=== PATIENT | male | born 1980 | race Caucasian/White ===

== ENCOUNTER 2023-02-26 07:45 | Outpatient (CLI) | payer BC, SELFPAY | END 2023-02-26 07:46 | disposition home or self-care (01) | LOC: NFLDREF 11:38 | PROVIDERS: Visit Provider Internal Medicine Nephrology | DX: N18.5 Chronic kidney disease, stage 5 (principal); R53.83 Other fatigue; Z94.0 Kidney transplant status | CPT/HCPCS: 80061; 80069; 80197; 82043; 82306; 82310; 82570; 83520; 83970; 84165; 84450; 84460; 84550 ==

== ENCOUNTER 2023-03-06 07:01 | Outpatient (CLI) | payer BC, SELFPAY ==
--- NOTE | 2023-03-06 07:15 | CRLHL7_ITS ---
For Patients: As a result of the Century Cures Act, medical imaging exams and procedure reports are released immediately into your electronic medical record. You may view this report before your referring provider. If you have questions, please contact your health care provider. Indication: transplant kidney status. Technique: Grayscale, color Doppler and power Doppler evaluation of the transplanted kidney. Comparison: None Findings: Transplant kidney located within the right lower quadrant. The transplant kidney measures 12.9 cm in length. Normal color Doppler flow to the transplant kidney. Transplant renal cortex measures 1.4 cm, normal. Incidental simple cyst lower pole transplant kidney measuring 1.3 x 1.0 x 0.9 cm and 1.1 x 1.1 x 0.8 cm. Peak systolic velocity within the mid aorta 75 cm/seconds. Normal patency of the inferior vena cava. External iliac artery and vein on the right are normally patent with normal flow. Transplant right renal artery is patent with normal multiphasic flow. Normal resistive indices. Atrophic prairie band right kidney. Impression: Normal evaluation of the renal transplant with incidental simple cysts measuring up to 1.3 cm. Dictated by Milton Carcamo MD @ 03/06/2023 1:13:18 PM (Electronically Signed)
== END 2023-03-06 07:02 | disposition home or self-care (01) ==
PROVIDERS: PCP Internal Medicine; Visit Provider Internal Medicine Nephrology
DX: Z94.0 Kidney transplant status (principal); N28.1 Cyst of kidney, acquired; R07.9 Chest pain, unspecified
CPT/HCPCS: 76776

== ENCOUNTER 2023-05-15 09:50 | Outpatient (CLI) | payer BC, SELFPAY ==
--- OUTSIDE RECORDS SUMMARY | 2023-05-16 06:37 | XMS_ITS ---
Author Name Unknown Organization [facility] Address [address] [place] [address] Care Team Providers Care Printing Plate Clerk Name Role Phone Unavailable Unavailable Unavailable Surgery Details Not on file Complications Check Surgery Details section. Procedure Estimated Blood Loss Check Surgery Details section. Procedure Findings Check Surgery Details section. Procedure Specimens Taken Check Surgery Details section.
--- OUTSIDE RECORDS SUMMARY | 2023-05-16 06:37 | XMS_ITS | Clinical Summary ---
Author Name Unknown [facility] Address [address] [place] [address] Care Team Providers Care Hand Grinder Name Role Phone Nhung Quijano APRN, ANIMAL SITTER Primary Care Provider + Source Comments You are receiving this document as you are listed as the primary care provider,follow-up provider, or the patient has been referred to you for consultation.This is in compliance with the Medicare andMedicaid EHR Incentive Program,which states Providers who transition their patient to another setting of careor provider of care or refers their patient to another provider of care shouldprovide summary care record for each transition of care or referral. [facility] Allergies Active Allergy Reactions Criticality Noted Date Comments Amoxicillin Hives 08/05/2013 Erythromycin Anaphylaxis High 10/09/2007 Pt does not remember allergy or reaction Morphine 08/05/2013 PN: severe aggression Penicillins Anaphylaxis,Hives High 08/05/2013 Prednisone Hives High 01/10/2008 Prochlorperazine Anxiety 10/12/2007 Medications Medication Sig Dispensed Refills Start Date End Date Status mycophenolate (CELLCEPT) 500 MG tablet Take 1,000 mg by mouth 2 times daily. 08/05/2013 Active tacrolimus (PROGRAF) 1 MG capsule Take 2.5 mg by mouth two times a day. 08/05/2013 Active doxycycline (VIBRAMYCIN) 100 MG capsuleIndications :Acute maxillary sinusitis, recurrence not specified Take 1 Capsule by mouth two times a day. 14 Capsule 04/30/2019 Active Additional Information Patient not taking.Reported on 08/24/2020 buPROPion (WELLBUTRIN XL) 150 MG 24 hour release tablet Take 1 Tablet by mouth daily. 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 Now on daily antiviral d/t h/o kidney transplant, on immunosuppressive therapy History of kidney transplant 08/05/2013 Overview: Goes to [facility] [place] [address] [place] Resolved Problems Problem Noted Date Diagnosed Date Resolved Date Chronic diarrhea 03/09/2015 10/21/2016 Overview: Neg workup. Possibly Cellcept? Heartburn 03/09/2015 03/16/2018 Overview: Planning EGD. If needing chcf antacid will discuss w/ stoker installer FSGS (focal segmental glomerulosclerosis) 08/05/2013 08/05/2013 Asthma 04/18/2016 Overview: childhood Immunizations Name Administration Dates Next Due 9vHPV (Gardasil 9) 03/03/2019,03/16/2018 HepA-HepB ([place], 18+ yrs) 03/03/2019,03/16/20 18,10/20/2016 Influenza IIV4 (Quadrivalent ) 0.5mL (47182) 03/03/2019,03/16/2018 Influenza, Unspecified Formulation 12/27,01/28/2015,01/14/2011,2009,01/08/2009 PCV13 (Prevnar) 10/20/2016 PPSV23 (Pneumovax) 03/16/2018,03/04/2007, 007 Td (7+ yrs) 08/31/2006 Tdap 10/20/2016 Family History Medical History Relation Name Comments High Blood Pressure Mother High Cholesterol Mother Cancer Maternal Grandmother Relation Name Status Comments Mother Maternal Grandmother Social History Tobacco Use Types Packs/Day Years Used Date Smoking Tobacco: Former Cigarettes Electric Cigarette Smokeless Tobacco: Never Comments:previously used E-c igarette 07/17 Declinse to give deltails Alcohol Use Standard Drinks/Week Comments Yes 0 (1 standard drink = 0.6 oz pur e alcohol) seldom PHQ-2 Answer Date Recorded PHQ-2 Score 3 05/31/2020 Sex and Gender Information Value Date Recorded Sex Assigned at Not on file Gender Identity Not on file Sexual Orientation Not on file Last Filed Vital Signs Vital Sign Reading Time Taken Comments Blood Pressure 141/83 08/24/2020 7:31 PM CDT Pulse 99 08/24/2020 7:31 PM CDT Temperature 36.8 ??C (98.3 ??F) 08/24/2020 7:31 PM CD T Respiratory Rate 16 08/24/2020 7:31 PM CDT Oxygen Saturation 98% 08/24/2020 7:31 PM CDT Inhaled Oxygen Concentration - - Weight 88.9 kg (196 lb) 05/31/2020 10:11 AM FIRE PREVENTION CHIEF pt reports Height 170.2 cm (5' 7) 05/31/2020 10:11 AM FIRE PREVENTION CHIEF pt reports Body Mass Index 30.7 05/31/2020 10:11 AM FIRE PREVENTION CHIEF Plan of Treatment Health Maintenance Due Date Last Done Comments Diabetes: Eye Exam 1982 Diabetes: Foot Exam 1982 Zoster/Shingles (1 of 2) 2001 HPV Vaccine (3 - Risk 3-dose SCDM series) 07/03/2019 03/03/2019, 03/16/2018 Diabetes: Urine Microalbumin 02/15/2021 02/16/2020, 10/24/2019 Adult Preventive Visit 03/03/2021 03/03/2019 Diabetes: HGBA1C 06/05/2021 03/07/2021, , 02/16/2020, Additional history exists Diabetes: Creatinine 09/03/2021 09/03/2020, 02/16/2020, 10/24/2019, Additional history exists COVID-19 Vaccine ( season) 2022 04/09/2021, 11/06/2020, 07/17/2020, Additional history exists Influenza (#1) 2022 03/03/2019, 03/02, 12/28/2015, Additional history exists Diabetes: Lipid Panel 04/03/2024 04/03/2019 , 08/01/2017, 06/11/2015 DTaP/Tdap/Td (3 - Tdap) 10/20/2026 10/21/19 17, 03/04/2007, 08/31/2006 Pneumococcal (4 - PPSV23 or PCV20) 09/21/2047 03/16/2018, 10/20/2016, 03/04/2007, Additional history exists Hep C Screening (Preventive Services) Completed 10/26/2015 HIV Screening (Preventive Services) Completed 10/20/2016, 10/26/2015 HepA Completed 03/03/2019, 03/02, 10/20/2016, Additional history exists HepB Completed 03/03/2019, 03/02, 10/20/2016 Cholesterol Discontinued 04/03/2019, 05/2017, 06/11/2015 Hib Aged Out No longer eligi ble based on patient's age to complete this topic IPV (Polio) Aged Out No longer eligi ble based on patient's age to complete this topic [email or web address] Aged Out No longer eligi ble based on patient's age to complete this topic Procedures Procedure Name Priority Date/Time Associated Diagnosis Comments RENAL FUNCTION PANEL Routine 09/03/2020 11:03 AM CDT Transplanted kidney Type 2 diabetes mellitus with stage 3a chronic kidney disease, unspecified whether chcf insulin use (HRC) ALBUMIN/CREAT RATIO Routine 02/16/2020 1 2:17 PM FIRE PREVENTION CHIEF Kidney replaced by transplant Chronic kidney disease (CKD), stage III (moderate) HGB A1C Routine 02/16/2020 12:07 PM FIRE PREVENTION CHIEF Kidney replaced by transplant Chronic kidney disease (CKD), stage III (moderate) LIPID PANEL & DIRECT LDL (IF NEEDED) Routine 04/03/2019 2:09 PM FIRE PREVENTION CHIEF Chronic kidney disease, stage III (moderate) (HRC) Kidney replaced by transplant HIV-1 P24 AND HIV-1/HIV-2 ANTIBODIES Routine 10/20/2016 1:18 PM CDT Screen for STD (sexually transmitted disease) HEPATITIS PANEL ACUTE WITH REFLEX TO CONFIRMATION Routine 10/26/2015 3:54 PM CDT Screen for STD (sexually transmitted disease) from Last 3 Months or Most Recently Relevant to Health Maintenance Results * (ABNORMAL) Renal Function Panel (09/03/2020 11:03 AM CDT) Pathologist [facility] Sodium 137 136 - 145 mmol/L 09/03/2020 4:42 PM CDT [facility] Potassium 4.6 3.5 - 5.1 mmol/L 09/03/2020 4:42 PM CDT [facility] Chloride 105 98 - 109 mmol/L 09/03/2020 4:42 PM CDT [facility] CO2 21 20 - 29 mmol/L 09/03/2020 4:42 PM CDT [facility] Anion Gap 11 7 - 16 mmol/L 09/03/2020 4:42 PM CDT [facility] Calcium 9.8 8.4 - 10.4 mg/dL 09/03/2020 4:42 PM CDT [facility] BUN 22 7 - 26 mg/dL 09/03/2020 4:42 PM CDT [facility] Creatinine 1.93(H) 0.73 - 1.18 mg/dL 09/03/2020 4:42 PM CDT [facility] GFR, Estimated 43(L) >60 mL/min/1.7 3m2 09/03/2020 4:42 PM CDT [facility] Albumin 4.1 3.5 - 5.0 g/dL 09/03/2020 4:42 PM CDT [facility] Phosphorus 3.1 2.3 - 4.7 mg/dL 09/03/2020 4:42 PM CDT [facility] Glucose 91 70 - 100 mg/dL 09/03/2020 4:42 PM CDT [facility] Comment:The given reference range is for the fasting state. Non-fasting reference range for glucose is 70 - 180 mg/dL. Hours Fasting 12 09/03/2020 4:42 PM CDT [facility] Blood Venipuncture / Unknown 09/03/2020 11:03 AM CDT 09/03/2020 11:03 AM CDT Bryson Lewis MD LAB_1 Performing Organization Address [facility] Co de Phone Number [facility] [address] [place], [place] [id number] [place] [address] LABORATORY [address] [place] [address] [phone] * Microalb/Creat Ratio (02/16/2020 12:17 PM FIRE PREVENTION CHIEF) Albumin, Urine, Random 9.3 mg/L 02/16/2020 6:18 PM FIRE PREVENTION CHIEF [facility] Creatinine, Urine, Random 47 >20 mg/dL 02/16/2020 6:18 PM FIRE PREVENTION CHIEF [facility] Albumin/Creati nine Ratio, Urine, Random 20 <30 mg/g 02/16/2020 6:18 PM FIRE PREVENTION CHIEF [facility] Urine Non-blood Collection / Unknown 02/16/2020 12:17 PM FIRE PREVENTION CHIEF 02/16/2020 12:17 PM FIRE PREVENTION CHIEF Bryson Lewis MD LAB_1 Performing Organization Address [facility] Co de Phone Number [facility] [address] [place], [place] [phone] [place] [address] * Hgb A1C (02/16/2020 12:07 PM FIRE PREVENTION CHIEF) Hemoglobin A1C 5.1 <=5.6 % 02/17/2020 9:22 [address] [facility] Blood Venipuncture / Unknown 02/16/2020 12:07 PM FIRE PREVENTION CHIEF 02/16/2020 12:07 PM FIRE PREVENTION CHIEF Bryson Lewis MD LAB_1 Performing Organization Address [facility]/ZIP Co de Phone Number [facility] [address] [address] [phone] * (ABNORMAL) Lipid Panel (reflex to Direct LDL if indicated) (04/03/2019 2:09 PM FIRE PREVENTION CHIEF) Cholesterol 197 0 - 199 mg/dL 04/03/2019 7:24 PM FIRE PREVENTION CHIEF [facility] Triglyceride 176(H) <=149 mg/dL 04/03/2019 7:24 PM FIRE PREVENTION CHIEF [facility] HDL Cholesterol 32(L) >=40 mg/dL 0 7:24 PM FIRE PREVENTION CHIEF [facility] LDL, Calculated 130(H) <130 mg/dL 0 7:24 PM FIRE PREVENTION CHIEF [facility] Non HDL Chol, Calculated 165 mg/dL 04/03/2019 7:24 PM FIRE PREVENTION CHIEF [facility] Cholesterol/HDL Ratio 6.2 04/03/2019 7:24 PM FIRE PREVENTION CHIEF [facility] Hours Fasting 12 04/03/2019 7:24 PM FIRE PREVENTION CHIEF [facility] Blood Venipuncture / Unknown 04/03/2019 2:09 PM FIRE PREVENTION CHIEF 04/03/2019 2:09 PM FIRE PREVENTION CHIEF Bryson Lewis MD LAB_1 Performing Organization Address City/[facility]/ZIP Co de Phone Number [facility] [address] [place] [address], [facility] [address] [place] [address], [facility] [phone] * HIV-1 p24 AND HIV-1/HIV-2 ANTIBODIES (10/20/2016 1:18 PM CDT) [facility] HIV-1 p24 Ag and HIV-1/HIV-2 Ab Nonreactive Nonreactive [facility] 10/20/2016 1:18 PM CDT 10/20/2016 2:56 PM CDT Narrative PN SOFT - 10/20/2016 3:44 PM CDT Performed at [facility], [address] [place] [address] CLIA number [id number] Nhung Quijano APRN, CNP LAB_1 Performing Organization Address [facility] Co de Phone Number [address] [address] * HEPATITIS PANEL ACUTE WITH REFLEX TO CONFRIMATION (10/26/2015 3:54 PM CDT) Hepatitis A Virus AB IgM Nonreactive Non Reactive HP CONVERSION Hepatitis B Core IgM Antibody Nonreactive Nonreactive HP CONVERSION Hep B Surf Ag Nonreactive Negative HP CONVERSION Hepatitis C Antibody Nonreactive Non-Reactive HP CONVERSION 10/26/2015 3:54 PM CDT 10/26/2015 7:29 PM CDT Narrative HP CONVERSION - 10/26/2015 8:50 PM CDT Performed at [address] [address] CLIA number [id number] Nhung Quijano APRN, JENNIFER LAB_1 HP CONVERSION from Last 3 Months or Most Recently Relevant to Health Maintenance Advance Directives Latest Code Status on File Code Status Date Activated Date Inactivated Comments Full Code 10/13/2015 9:08 AM 10/13/2015 12:36 PM Care Teams Hand Grinder Relationship Specialty Start Date End Date Nhung Quijano APRN, ANIMAL SITTER [address] [place] [address] PCP - General 08/05/13
--- OUTSIDE RECORDS SUMMARY | 2023-05-16 06:37 | XMS_ITS | Encounter Summary ---
Author Name Unknown Organization [facility] Address [address] [place] [address] Care Team Providers Care Ssn/Ssbn Weapons Equipment Operator Name Role Phone Unavailable Primary Care Provider Unavailabl e Reason for Visit * Appointment Request (Routine) - Authorized Specialty Diagnoses / Procedures Referred By Contraymond t Referred To Contact Nephrology and Hypertension Referral ID Status Reason Start Date Expiration Date V isits Requested Visits Authorized [id number] Authorized 02/08/2023 02/08/2024 1 1 Encounter Details Date Type Department Care Team (Latest Contact Info) Description 02/19/2023 4:00 PM ENGINEERING DOCUMENTATION SPECIALIST External Outreach Division of Nephrology and Hypertension in [place], [place] [address] [place] [address] Sami Becerra Jr., D.O. [address] [place] [address] Chronic Kidney Disease (CKD), Stage 3a Glomerular Filtration Rate (GFR) 45 To 59 (HCC) (Primary Dx); Transplant Renal (HCC); Immune Disorder (HCC); Glomerulosclerosis Focal Segmental; Dyspnea On Exertion Social History Tobacco Use Types Packs/Day Years Used Date Smoking Tobacco: Never Assessed Nutrition Answer Date Recorded Nutrition: EVOO Fat Source Unknown 02/08 Nutrition: Servings of Fruits/Vegetables per Day Not on file 02/08/2023 Dental Answer Date Recorded Dental: Regular Dentist Unknown 02/09/20 23 Sex and Gender Information Value Date Recorded Sex Assigned at Not on file Gender Identity Not on file Sexual Orientation Not on file documented as of this encounter Last Filed Vital Signs Vital Sign Reading Time Taken Comments Blood Pressure 110/64 02/19/2023 5:15 PM ENGINEERING DOCUMENTATION SPECIALIST Pulse 92 02/19/2023 5:15 PM ENGINEERING DOCUMENTATION SPECIALIST Temperature - - Respiratory Rate - - Oxygen Saturation - - Inhaled Oxygen Concentration - - Weight 108 kg (238 lb 15.7 oz) 02/19/2023 5:15 P M ENGINEERING DOCUMENTATION SPECIALIST Height 170 cm (5' 6.93) 02/19/2023 5:15 PM ENGINEERING DOCUMENTATION SPECIALIST Body Mass Index 37.51 02/19/2023 5:15 PM ENGINEERING DOCUMENTATION SPECIALIST documented in this encounter Progress Notes * Sami Becerra Jr., D.O. - 02/19/2023 4:00 PM CST Referring Provider: No primary care provider on file. SUBJECTIVE REASON FOR VISIT [facility] Full consultation management, regards immunosuppressive management, post kidney transplant, focal sclerosis related glomerular nephritis HISTORY OF PRESENT ILLNESS Mr. Patino is a 42 y.o. 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 Preceding this, he was on peritoneal dialysis for 6 months. Details regarding his peritransplant and posttransplant course are still somewhat hazy although he is an excellent historian. He just moved back to the area from [facility] where he had been for approximately 3-4 years, after being disrupted by a terrible her cane. 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 He feels well, but is noticing that he is a bit more fatigued and more easily winded. No chest discomfort. He has had no nausea no vomiting, he does relate that he is often quite hot and sweats very easily. Baseline serum creatinine has been 1.6-1.7 mg/dL through his transplant program. He admits however that he is not been absolutely adherent to his anti rejection agents, he has been faithful in takinghis mycophenolate mofetil-CellCept 500 mg twice daily but does admit he recently ran out. He has also been taking his tacrolimus which is prescribed as 2.5 mg twice daily, only once daily and recently ran out. He has had no issues with hypertension, no issues with skin lesions no infection complications, he does use valacyclovir 500 mg daily for prophylaxis regards frequent oral aphthous ulcers. He has hadno issues with anemia, he is a nondrinker nonsmoker, and is anxious to get back to visit with his family over the . He has had no skin changes, he has not had any issues with bowel or bladder. He has been told that there is a cyst on his transplant and which has been monitored. Overall he is in good health, and anxious to establish a new life here in the [facility]. He promises to get me the records from the past 13 years plus. Past medical history: 1. 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 Status post living donor kidney transplant 2007 3. Satisfactory renal allograft function 4. CKD stage IIIA secondary to nephrosclerosis in his allograft 5. Previous aphthous ulcers 6. Focal sclerosis by history Current Outpatient Medications: mycophenolate (CELLCEPT) 500 mg tablet, Take 1 tablet (500 mg total) by mouth 2 (two) times a day.,Disp: 180 tablet, Rfl: 3 tacrolimus (PROGRAF) 0.5 mg capsule, Take 1 capsule (0.5 mg total) by mouth 2 (two) times a day. Total 2.5 mg BID, Disp: 180 capsule, Rfl: 3 tacrolimus (PROGRAF) 1 mg capsule, Take 2 capsules (2 mg total) by mouth 2 (two) times a day. Total2.5 mg BID, Disp: 360 capsule, Rfl: 3 valACYclovir (VALTREX) 500 mg tablet, Take 1 tablet (500 mg total) by mouth daily. Transplant prophylaxis, Disp: 90 tablet, Rfl: 3 REVIEW OF SYSTEMS All other systems reviewed and are negative. OBJECTIVE BP 110/64 Pulse 92 Ht 170 cm Wt 108 kg BMI 37.51 kg/m?? PHYSICAL EXAMINATION General: Awake alert oriented HEENT: SIERRA, EOMI, Mucous membranes moist, no oral lesions Neck: No Masses, No Bruits Lungs: Clear to ascultation Heart: Regular Rate and Rhythm, No ectopy Murmurs or rubs Abdomen: Soft, Non-tender Extremities: No cyanosis, No clubbing: No edema Neuro: Cranial Nerves intact, Gait is normal, strength grossly normal Skin: no suspicious lesions identified Psychiatric: Normal affect DIAGNOSTICS All his labs are pending ASSESSMENT / PLAN #1 Chronic Kidney Disease (CKD), Stage 3a Glomerular Filtration Rate (GFR) 45 To 59 (HCC) Relying entirely on the patient's historical knowledge, he has end-stage renal disease due to focalsclerosis requiring peritoneal dialysis for 6 months prior to a living donor kidney transplant fromhis father in 2007 in [place]. We will need to confirm or refute, versus fine tune the history. He is getting us outside records. He is hoping to be able to tap into his patient portal from his previous team, and will bring this to our return visit which will be in April of 2023 Going forward: 1. I have reinitiate his anti rejection agents as per previous, a tacrolimus 2.5 mg orally twice daily, and mycophenolate mofetil-CellCept 500 mg orally twice daily. We will check trough levels. 2. We will ensure goal blood pressure below 120/80 which seems to have been achieved 3. He will avoid NSAIDs and Herrera 2 inhibitors 4. We will check the architecture of his allograft, with an ultrasound in his right lower quadrant. 5. We will set him up for health maintenance and surveillance issues including a dermatology evaluation eventually, and cardiovascular evaluation regards his dyspnea on exertion-see below. #2 Transplant Renal (HCC) As above we will resume his immunosuppressive regimen. #3 Immune Disorder (HCC) We will continue with the bowel acyclovir at 500 mg orally daily I have refilled this for him and sent to his mail-in pharmacy. #4 Glomerulosclerosis Focal Segmental Clearly this was in his youth, and we will enjoy reviewing his prior records once these are available. #5 Dyspnea On Exertion He is concerned about his cardiovascular health, and I agree that we should move ahead with evaluation. I have set him up for an ECG, chest x-ray, and an exercise nuclear scan. We will also evaluate his lipid profile and monitor his blood pressure carefully. Total time: 1 hour and 20 minutes Counseling Time: 50 minutes Sami Becerra Jr., D.O. NEERING DOCUMENTATION SPECIALIST documented in this encounter Plan of Treatment Not on file documented as of this encounter Visit Diagnoses Diagnosis Chronic Kidney Disease (CKD), Stage 3a Glomerular Filtration Rate (GFR) 45 To 59 (HCC)- Primary Transplant Renal (HCC) Immune Disorder (HCC) Glomerulosclerosis Focal Segmental Dyspnea On Exertion documented in this encounter
--- OUTSIDE RECORDS SUMMARY | 2023-05-16 06:37 | XMS_ITS | Clinical Summary ---
Author Name Unknown Organization [facility] Address [place], [place] [address] Care Team Providers Care Molder Bench Name Role Phone Nhung Quijano NP Primary Care Provider [phone] Allergies Active Allergy Reactions Criticality Noted Date Comments Amoxicillin Anaphylaxis High 04/17/2019 Morphine (Pf) Agitation High 04/17/2019 Penicillins Anaphylaxis High 04/17/2019 Medications Medication Sig Dispensed Refills Start Date End Date Status mycophenolate (CELLCEPT) 500 mg tablet Take by mouth every 12 hours. 0 Active tacrolimus (PROGRAF) 0.5 mg capsule Take 2.5 mg by mouth every 12 hours. 0 Active valACYclovir (VALTREX) 1 gram tablet Take 1 g by mouth 2 times daily. 0 Active acetaminophen (TYLENOL) 325 mg tablet Take 975 mg by mouth every 4 hours if needed. Max acetaminophen dose: 4000mg in 24 hrs. 0 Active Encounters Date Type Department Care Team Description 03/06/2023 3:00 PM PAINT STOCK CLERK Orders Only [facility] at [facility] [address] [place] [address] 2 scans: (2-Ord) ECHO STRESS EXERCISE WO CONTRAST W COLOR W LTD DOPPLER ([id number]) from Last 3 Months Social History Tobacco Use Types Packs/Day Years Used Date Smoking Tobacco: Former Smokeless Tobacco: Never Alcohol Use Standard Drinks/Week Comments Yes 0 (1 standard drink = 0.6 oz pur e alcohol) rarely Sex and Gender Information Value Date Recorded Sex Assigned at Not on file Gender Identity Not on file Sexual Orientation Not on file Obstetrics History Last Filed Vital Signs Vital Sign Reading Time Taken Comments Blood Pressure 135/80 04/17/2019 9:51 PM PAINT STOCK CLERK Pulse 100 04/17/2019 9:51 PM PAINT STOCK CLERK Temperature 36.9 ??C (98.5 ??F) 04/17/2019 9:51 PM CS T Respiratory Rate 16 04/17/2019 9:51 PM PAINT STOCK CLERK Oxygen Saturation 96% 04/17/2019 9:51 PM PAINT STOCK CLERK Inhaled Oxygen Concentration - - Weight 93 kg (205 lb) 04/17/2019 9:51 PM PAINT STOCK CLERK Height 171.5 cm (5' 7.5) 04/17/2019 9:51 PM PAINT STOCK CLERK Body Mass Index 31.63 04/17/2019 9:51 PM PAINT STOCK CLERK Plan of Treatment Not on file Procedures Procedure Name Priority Date/Time Associated Diagnosis Comments ECHO STRESS EXERCISE WO CONTRAST W COLOR W LTD DOPPLER Routine 03/06/2023 3:24 PM PAINT STOCK CLERK Chest pain from Last 3 Months Results * ECHO STRESS EXERCISE WO CONTRAST W COLOR W LTD DOPPLER (03/06/2023 3:24 PM PAINT STOCK CLERK) AORTIC VALVE MEAN PG 3 mmHg EJECTION FRACTION 70 % LVEDD 4.1 cm EJECTION FRACTION 55 - 60% Anatomical Region Laterality Modality Ultrasound 03/06/2023 2:51 PM PAINT STOCK CLERK Narrative 03/06/2023 3:33 PM PAINT STOCK CLERK STRESS ECHOCARDIOGRAM JESSICA PATINO ? Accession#: ?? [id number] : ?1980 42 years Study Date: ?? 03/06/2023 2:51:48 PM Gender: M ?BP: ? 114/81 mmHg Height: 173.00 cm ?BSA: ?2.20 m? ? ? Weight: 107.00 kg ?Tech: ? MJW ? Referring MD: ANJELICA BAIRD Site: ? [facility] Reading Location: Mobile-OP Patient Location: Outpatient. Procedure: Stress Echo, Limited Spectral Doppler and Color Doppler. Ge stress echo. Indication for study: Chest Pain Cardiac Rhythm: Regular.Study quality: Final Impressions: 1. Negative stress echo for ischemia. 2. Grossly normal rest screening echo. 3. Excellent exercise duration and workload. 4. During stress exam the patient developed no significant symptoms. 5. See separate report for EKG interpretation. 6. Maximum stress test with 92.5% of age predicted maximum heart rate achieved. 7. Post stress, normal left ventricular size, normal global systolic function with an estimated EF of >75%. Stress Data: ? HR ?Systolic Diastolic Time Duration Minutes Seconds Baseline 69 bpm ?114 ?81 mmHg ? 11 :0 ?Peak ? 166 bpm ?? 174 ?92 mmHg Max Pred HR ?180 % of Max ? 92% Double Product [id number] Echo Findings:This is a negative stress echo test for ischemia. Post stress, normal left ventricular size, normal global systolic function with an estimated EF of >75%. LV regional wall motion abnormalities are not present post exercise. EKG:See separate report for EKG interpretation. Exam Protocol:The patient presents with no significant symptoms at baseline. The patient exercised 11 min 0 sec to stage IV according to the Ge stress echo protocol. Test terminated due to fatigue. 13.5 METS were achieved. The patient achieved a heart rate of 166 bpm which is 92.5% of maximum predicted heart rate. Maximum systolic blood pressure was 174 [place] [id number]. Maximum stress test with 92.5% of age predicted maximum heart rate achieved. The blood pressure response was normal. Exercise duration and workload were excellent. The patient developed no significant symptoms during the stress exam. Low (less than 1% annual mortality rate) non invasive risk stratification. Chamber Sizes and Function Normal left ventricular size, normal global systolic function with an estimated EF of 55 - 60%. LV regional wall motion abnormalities are not present. Right ventricular cavity size is normal, global systolic RV function is normal. RV wall thickness is normal. Right atrial area is 13 cm? ? ?. The sinus of Valsalva is normal sized. The ascending aorta is normal sized. Valves, RV Pressures and Diastolic Function The aortic valve is normal in structure and trileaflet, no stenosis and no regurgitation. The mitral valve is normal in structure, no mitral regurgitation. The tricuspid valve is normal in structure. Tricuspid regurgitation is not evident. Masses, Effusion, Shunts There is no pericardial effusion. MEASUREMENTS AND CALCULATIONS 2-D Measurements and LV Function: LVID (d) 4.1 cm LV FS% (2D) ?? 32 % LVID (s) 2.8 cm LVOT diameter 2.3 cm IVS (d) ??1.0 cm HR ?69 bpm LVPW (d) 1.0 cm LA Vol index ??13 ml/m2 Ao Sinus 3.2 cm RA area ? 13 cm? ? ? Asc Ao ?? 3.2 cm RV Max 4C (d) 2.2 cm LA ? 4.1 cm Diastology: Mitral E Peak 0.57 m/s A Peak 0.50 m/s E/A ?1.1 DT ? 216 msec Aortic Valve: Vmax ? 1.0 m/s ??ELIAZAR (V) ?? 3.94 cm? ? ? VTI ?0.19 m ?? ELIAZAR (I) ?? 3.93 cm? ? ? LVOT V max ? 1.0 m/s ??Max PG ?4 mmHg LVOT VTI ? 0.18 m ?? Mean PG ?? 3 mmHg SV ? 74 ml ?Dim Index 0.95 SV index ? 34 ml/m? ? ? AV Ejection Time 0.27 sec AV Flow Rate ? 278 ml/s Mitral Valve: MVA ?3.5 cm? ? ? MV P 1/2 63 msec Tricuspid Valve and estimated PA pressures: TAPSE 2.7 cm . This study was interpreted by an [facility] accredited facility. CC: HIM (med records) [facility]. ??Final ?? Procedure Note Gael Desai MD - 03/06/2023 STRESS ECHOCARDIOGRAM JESSICA PATINO : 1980 42 years Study Date: 03/06/2023 2:51:48 PM Gender: M BP: 114/81 mmHg Height: 173.00 cm BSA: 2.20 m? ? ? Weight: 107.00 kg Tech: [id number] Referring MD: ANJELICA BAIRD Site: [facility] Reading Location: Mobile-OP Patient Location: Outpatient. Procedure: Stress Echo, Limited Spectral Doppler and Color Doppler. Brucestress echo. Indication for study: Chest Pain Cardiac Rhythm: Regular.Study quality: Final Impressions: 1. Negative stress echo for ischemia. 2. Grossly normal rest screening echo. 3. Excellent exercise duration and workload. 4. During stress exam the patient developed no significant symptoms. 5. See separate report for EKG interpretation. 6. Maximum stress test with 92.5% of age predicted maximum heart rateachieved. 7. Post stress, normal left ventricular size, normal global systolicfunction with an estimated EF of >75%. Stress Data: HR Systolic Diastolic Time Duration Minutes Seconds Baseline 69 bpm 114 81 mmHg 11 :0 Peak 166 bpm 174 92 mmHg Max Pred HR 180 % of Max 92% Double Product [id number] Echo Findings:This is a negative stress echo test for ischemia. Poststress, normal left ventricular size, normal global systolic function withan estimated EF of >75%. LV regional wall motion abnormalities are notpresent post exercise. EKG:See separate report for EKG interpretation. Exam Protocol:The patient presents with no significant symptoms atbaseline. The patient exercised 11 min 0 sec to stage IV according to [facility] stress echo protocol. Test terminated due to fatigue. 13.5 METS wereachieved. The patient achieved a heart rate of 166 bpm which is 92.5% ofmaximum predicted heart rate. Maximum systolic blood pressure was 174 mmHg[place] [id number]. Maximum stress test with 92.5% ofage predicted maximum heart rate achieved. The blood pressure response wasnormal. Exercise duration and workload were excellent. The patientdeveloped no significant symptoms during the stress exam. Low (less than1% annual mortality rate) non invasive risk stratification. Chamber Sizes and Function Normal left ventricular size, normal global systolic function with anestimated EF of 55 - 60%. LV regional wall motion abnormalities are notpresent. Right ventricular cavity size is normal, global systolic RVfunction is normal. RV wall thickness is normal. Right atrial area is 13cm? ? ?. The sinus of Valsalva is normal sized. The ascending aorta is normalsized. Valves, RV Pressures and Diastolic Function The aortic valve is normal in structure and trileaflet, no stenosis and noregurgitation. The mitral valve is normal in structure, no mitralregurgitation. The tricuspid valve is normal in structure. Tricuspidregurgitation is not evident. Masses, Effusion, Shunts There is no pericardial effusion. MEASUREMENTS AND CALCULATIONS 2-D Measurements and LV Function: LVID (d) 4.1 cm LV FS% (2D) 32 % LVID (s) 2.8 cm LVOT diameter 2.3 cm IVS (d) 1.0 cm HR 69 bpm LVPW (d) 1.0 cm LA Vol index 13 ml/m2 Ao Sinus 3.2 cm RA area 13 cm? ? ? Asc Ao 3.2 cm RV Max 4C (d) 2.2 cm LA 4.1 cm Diastology: Mitral E Peak 0.57 m/s A Peak 0.50 m/s E/A 1.1 DT 216 msec Aortic Valve: Vmax 1.0 m/s ELIAZAR (V) 3.94 cm? ? ? VTI 0.19 m ELIAZAR (I) 3.93 cm? ? ? LVOT V max 1.0 m/s Max PG 4 mmHg LVOT VTI 0.18 m Mean PG 3 mmHg SV 74 ml Dim Index 0.95 SV index 34 ml/m? ? ? AV Ejection Time 0.27 sec AV Flow Rate 278 ml/s Mitral Valve: MVA 3.5 cm? ? ? MV P 1/2 63 msec Tricuspid Valve and estimated PA pressures: TAPSE 2.7 cm . This study was interpreted by an [facility] accredited facility. CC: MARJAN ([facility]) [facility]. Final Anjelica Torres Mariam TAYLOR ORD from Last 3 Months Care Teams Molder Bench Relationship Specialty Start Date End Date Nhung Quijano, DRAFTER TOOL DESIGN [address] [place] [address] PCP - General Family Practice 04/17/19
--- OUTSIDE RECORDS SUMMARY | 2023-05-16 06:37 | XMS_ITS | Encounter Summary ---
Author Name Unknown Organization [facility] Address [address] [place] [address] Care Team Providers Care Roll Press Operator Name Role Phone Unavailable Primary Care Provider Unavailabl e Reason for Referral * Behavioral Health (Routine) - Authorized Specialty Diagnoses / Procedures Referred By Reid winkler Referred To Contact Psychiatry / Psychiatry and Psychology Diagnoses Chronic Kidney Disease (CKD), Stage 3a Glomerular Filtration Rate (GFR) 45 To 59 (HCC) Transplant Renal (HCC) Immune Disorder (HCC) Glomerulosclerosis Focal Segmental Dyspnea On Exertion Depressive Disorder Sami Becerra Jr., D.ODaphne [address] [place] [address] [facility] Referral ID Status Reason Start Date Expiration Date Visits Requested Visits Authorized [id number] Authorized Specialty Services Required 04/16/2023 04/15/2024 1 1 L CHECKER Reason for Visit * Appointment Request (Routine) - Closed Specialty Diagnoses / Procedures Referred By Reid winkler Referred To Contact Nephrology and Hypertension Referral ID Status Reason Start Date Expiration Date Visits Re quested Visits Authorized [id number] Closed 03/02/2023 03/01/2024 1 1 Encounter Details Date Type Department Care Team (Latest Contact Info) Description 04/16/2023 4:00 PM STEEL CHECKER External Outreach Division of Nephrology and Hypertension in [place], [place] [address] [place] [id number] Sami Becerra Jr., D.ODaphne [address] [place] [phone] Chronic Kidney Disease (CKD), Stage 3a Glomerular Filtration Rate (GFR) 45 To 59 (HCC) (Primary Dx); Transplant Renal (HCC); Immune Disorder (HCC); Glomerulosclerosis Focal Segmental; Dyspnea On Exertion; Depressive Disorder Social History Tobacco Use Types Packs/Day Years [...] Sign Reading Time Taken Comments Blood Pressure 112/66 04/16/2023 4:01 PM STEEL CHECKER Pulse 76 04/16/2023 4:01 PM STEEL CHECKER Temperature - - Respiratory Rate - - Oxygen Saturation - - Inhaled Oxygen Concentration - - Weight 108 kg (237 lb 14 oz) 04/16/2023 4:01 PM STEEL CHECKER Height 170.1 cm (5' 6.97) 04/16/2023 4:01 PM CS T Body Mass Index 37.29 04/16/2023 4:01 PM STEEL CHECKER documented in this encounter Progress Notes * Sami Becerra Jr., D.O. - 04/16/2023 4:00 PM CST Referring Provider: No primary care provider on file. SUBJECTIVE REASON FOR VISIT [place] out reach [facility] Follow-up regards allograft function, assessment of recurrence of primary disease, blood pressure and establishment of chronic care HISTORY OF PRESENT ILLNESS Mr. Patino is a 42 y.o. male who presents with a prior history as per my note from January of renal transplant in 2007 from his father, for focal sclerosis. His labs were done 5 days following my last appointment with him. Several things were noted, and we discussed these. His creatinine is at baseline usually 1.6- 1.7 mg/dL, and I note his creatinine is up to 2 mg/dL. He also has microalbuminuria at 80 milligrams/gram, and that his tacrolimus level was below target at 3.4, with a target of 5-8. I note he is hyperlipidemic and had some increase in his liver function tests. Since reviewing these he has placed himself on a very strict diet avoiding red meat. Unfortunately he has struggling a bit with his mood. I note that his local Internal Medicine team placed him on an SSRI agent. However he is feeling quite overwhelmed currently. He has on a week-longleave of absence from work, which was granted by his administration. He is wondering whether he needs more time away. He is overwhelmed regards family circumstances involving alleged misbehavior by his brother, and what he senses as lack of engagement from his parents in a matter with his Grandmother. He has traditionally sought care with his counselor from a practice in the [facility]. I note he has been initiated on Lexapro 10 mg orally daily. He also has lorazepam 1 mg at bedtime available f rom his primary care Internal Medicine team. He has had no issues with orthostatic his arm no lower extremity swelling no rashes, no infectious complications. I note that his CBC is normal. 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 Status post living donor kidney transplant 2007 from his father 3. Immunocompromised host 4. History of depression and anxiety Current Outpatient Medications: mycophenolate (CELLCEPT) 500 mg [...] systems reviewed and are negative. OBJECTIVE BP 112/66 Pulse 76 Ht 170.1 cm Wt 108 kg BMI 37.29 kg/m?? PHYSICAL EXAMINATION General: Awake alert oriented [...] suspicious lesions identified Psychiatric: Normal affect DIAGNOSTICS Note serum creatinine 2.0 mg/dL, microalbumin to creatinine ratio 80 milligrams/gram, appreciate tacrolimus level 3.4 ASSESSMENT / PLAN #1 Chronic Kidney Disease (CKD), Stage 3a Glomerular Filtration Rate (GFR) 45 To 59 (HCC) His creatinine is above his previous baseline and I am going to have him back in a month so we may repeat this value now that he is back on his immunosuppressive regimen. I will also be checking his immunosuppressive drug levels, and repeating his lipids, following 3 months of a new diet. Goals going forward: Goal tacrolimus level between 5 and 8 Blood pressure less than 120/80 Better lipid management Low-sodium diet May need to consider statin agent #2 Transplant Renal (HCC) He is slightly below target with respect to his tacrolimus level, I am going to repeat his chemistries, urine studies, and his drug levels. We may need to make adjustments in his target dose. Also we may need to consider a allograft biopsy. #3 Immune Disorder (HCC) No infectious complications. #4 Glomerulosclerosis Focal Segmental No evidence of recurrence at this point. #5 Dyspnea On Exertion Note his echocardiogram, stress test, ECG were all within normal range as well as his chest x-ray. He is hyperlipidemic, and we are working on determining whether his diet with sufficient to change his lipids to a more favorable profile, with an LDL of 134 and an HDL of 31 with a total cholesterolof 214. I suspect we may need a statin agent. #6 Depressive Disorder He was initiated on escitalopram 10 mg orally daily, and has some lorazepam to use. I have advised him to continue to reach out to his prior mental health provider, we will schedule a appointment with psychiatry for him. Total time: 40 minutes Counseling Time: 30 minutes Sami Becerra Jr., D.O. L CHECKER documented in this encounter Plan of Treatment Scheduled Referrals Name Type Priority Associated Diagnoses Order Schedule Psychiatry and Psychology - General consult (clinic) Outpatient Referral Routine Chronic Kidney Disease (CKD), Stage 3a Glomerular Filtration Rate (GFR) 45 To 59 (HCC) Transplant Renal (HCC) Immune Disorder (HCC) Glomerulosclerosis Focal Segmental Dyspnea On Exertion Depressive Disorder Expected: 04/16/2023 (Approximate), Expires: 07/15/2024 documented as of this encounter Visit Diagnoses Diagnosis Chronic Kidney Disease (CKD), Stage 3a Glomerular Filtration Rate (GFR) 45 To 59 (HCC)- Primary Transplant Renal (HCC) Immune Disorder (HCC) Glomerulosclerosis Focal Segmental Dyspnea On Exertion Depressive Disorder documented in this encounter
--- OUTSIDE RECORDS SUMMARY | 2023-05-16 06:37 | XMS_ITS | Referral Summary ---
Author Name Unknown Organization [facility] Address [address] [place] [address] Care Team Providers Care Paper Goods Machine Set Up Operator Name Role Phone Unavailable Primary Care Provider Unavailabl e Source Comments Patient records contain information from all sites at [facility]. For routine questions regarding patient records, call [phone] during business hours, M-F 8:00 AM - 5:00 PM Central Time. Record requests for emergency care only can be directed to [phone] at any time.[facility] Encounters Date Type Department Care Team Description 04/16/2023 4:00 PM [facility] External Outreach Division of Nephrology and Hypertension in [place], [place] [address] [place] [address] Sami Becerra Jr., D.O. Chronic Kidney Disease (CKD), Stage 3a Glomerular Filtration Rate (GFR) 45 To 59 (HCC) (Primary Dx); Transplant Renal (HCC); Immune Disorder (HCC); Glomerulosclerosis Focal Segmental; Dyspnea On Exertion; Depressive Disorder 02/19/2023 4:00 PM [facility] External Outreach Division of Nephrology and Hypertension in [place], [place] [address] [place] [address] Sami Becerra Jr., D.O. Chronic Kidney Disease (CKD), Stage 3a Glomerular Filtration Rate (GFR) 45 To 59 (HCC) (Primary Dx); Transplant Renal (HCC); Immune Disorder (HCC); Glomerulosclerosis Focal Segmental; Dyspnea On Exertion from Last 3 Months Allergies No known active allergies Medications Medication Sig Dispensed Refills Start Date End Date Status tacrolimus (PROGRAF) 0.5 mg capsule Take 1 capsule (0.5 mg total) by mouth 2 (two) times a day. Total 2.5 mg BID 180 capsule 3 02/19/2023 02/19/2024 Active tacrolimus (PROGRAF) 1 mg capsule Take 2 capsules (2 mg total) by mouth 2 (two) times a day. Total 2.5 mg BID 360 capsule 3 02/19/2023 02/19/2024 Active mycophenolate (CELLCEPT) 500 mg tablet Take 1 tablet (500 mg total) by mouth 2 (two) times a day. 180 tablet 3 02/19/2023 02/19/2024 Active valACYclovir (VALTREX) 500 mg tablet Take 1 tablet (500 mg total) by mouth daily. Transplant prophylaxis 90 tablet 3 02/19/2023 02/19/2024 Active Active Problems Problem Noted Date Diagnosed Date Depressive Disorder 04/16/2023 Chronic Kidney Disease (CKD) , Stage 3a Glomerular Filtration Rate (GFR) 45 To 59 02/19/2023 Transplant Renal 02/19/2023 Immune Disorder 02/19/2023 Glomerulosclerosis Focal Segmental 02/19/2023 Dyspnea On Exertion 02/19/2023 Social History Tobacco Use Types Packs/Day Years Used Date Smoking Tobacco: Never Assessed Nutrition Answer Date Recorded Nutrition: EVOO Fat Source Unknown 02/08 Nutrition: Servings of Fruits/Vegetables per Day Not on file 02/08/2023 Dental Answer Date Recorded Dental: Regular Dentist Unknown 02/09/20 Sex and Gender Information Value Date Recorded Sex Assigned at Not on file Gender Identity Not on file Sexual Orientation Not on file Last Filed Vital Signs Vital Sign Reading Time Taken Comments Blood Pressure 112/66 04/16/2023 4:01 PM JAZZ MUSICIAN Pulse 76 04/16/2023 4:01 PM JAZZ MUSICIAN Temperature - - Respiratory Rate - - Oxygen Saturation - - Inhaled Oxygen Concentration - - Weight 108 kg (237 lb 14 oz) 04/16/2023 4:01 PM JAZZ MUSICIAN Height 170.1 cm (5' 6.97) 04/16/2023 4:01 PM CS T Body Mass Index 37.29 04/16/2023 4:01 PM JAZZ MUSICIAN Plan of Treatment Not on file
--- OUTSIDE RECORDS SUMMARY | 2023-05-16 06:37 | XMS_ITS | Clinical Summary ---
Author Name Unknown Organization [facility] Address [address] [place] [address] Care Team Providers Care Licensed Physical Therapy Assistant Name Role Phone Unavailable Primary Care Provider Unavailabl e Source Comments Patient records contain information from all sites at [facility]. For routine questions regarding patient records, call [phone] during business hours, M-F 8:00 AM - 5:00 PM Central Time. Record requests for emergency care only can be directed to [phone] at any time.[facility] Allergies No known active allergies Medications Medication [...] Focal Segmental 02/19/2023 Dyspnea On Exertion 02/19/2023 Encounters Date Type Department Care Team Description 04/16/2023 4:00 PM SCHOOL PSYCHOLOGIST External Outreach Division of Nephrology and Hypertension in [place], [place] [address] [place] [address] Sami Becerra Jr., D.O. Chronic Kidney Disease (CKD), Stage 3a Glomerular Filtration Rate (GFR) 45 To 59 (HCC) (Primary Dx); Transplant Renal (HCC); Immune Disorder (HCC); Glomerulosclerosis Focal Segmental; Dyspnea On Exertion; Depressive Disorder 02/19/2023 4:00 PM SCHOOL PSYCHOLOGIST External Outreach Division of Nephrology and Hypertension in [place], [place] [address] [place] [address] Sami Becerra Jr., D.O. Chronic Kidney Disease (CKD), Stage 3a Glomerular Filtration Rate (GFR) 45 To 59 (HCC) (Primary Dx); Transplant Renal (HCC); Immune Disorder (HCC); Glomerulosclerosis Focal Segmental; Dyspnea On Exertion from Last 3 Months Social History Tobacco [...] Comments Blood Pressure 112/66 04/16/2023 4:01 PM SCHOOL PSYCHOLOGIST Pulse 76 04/16/2023 4:01 PM SCHOOL PSYCHOLOGIST Temperature - - Respiratory Rate - - Oxygen Saturation - - Inhaled Oxygen Concentration - - Weight 108 kg (237 lb 14 oz) 04/16/2023 4:01 PM SCHOOL PSYCHOLOGIST Height 170.1 cm (5' 6.97) 04/16/2023 4:01 PM CS T Body Mass Index 37.29 04/16/2023 4:01 PM SCHOOL PSYCHOLOGIST Plan of Treatment Health Maintenance Due Date Last Done Comments Depression Monitoring (PHQ-9) 1980 HIV Screening 1980 Hepatitis C Screening 1980 Lipid (Cholesterol) Screening 1980 Zoster Vaccines (1 of 2) 2001 HPV Vaccines (3 - Risk 3-dos e SCDM series) 07/03/2019 03/03/2019, 03/16/2018 COVID-19 Vaccine (2022-2 4 season) 2022 04/09/2021, 11/06/2020, 07/17/2020, Additional history exists DTaP,Tdap,and Td Vaccines (3 - Td or Tdap) 10/20/2026 10/20/2016, 03/04/2007, 08/31/2006 Pneumococcal vaccine (0-64 y ears) (4 of 4 - PPSV23 or PCV20) 09/21/2047 03/16/2018, 10/20/2016, 03/04/2007, Additional history exists Hepatitis B Vaccines Completed 03/03/2019, 03/16/2018, 10/20/2016, Additional history exists Influenza Vaccine Completed 12/18/2022, , 03/16/2018, Additional history exists
== END 2023-05-15 09:51 | disposition home or self-care (01) ==
LOC: NFLDREF 05-16 06:27
PROVIDERS: PCP Internal Medicine; Referring Provider Internal Medicine; Visit Provider Internal Medicine Nephrology
DX: Z00.00 Encounter for general adult medical examination without abnormal findings (principal); N18.5 Chronic kidney disease, stage 5; R53.83 Other fatigue; F32.A Depression, unspecified; F41.9 Anxiety disorder, unspecified; Z94.0 Kidney transplant status
CPT/HCPCS: 80061; 80069; 80197; 82043; 82570; 84450; 84460; 84550

== ENCOUNTER 2023-07-24 10:38 | Outpatient (CLI) | payer BC, SELFPAY ==
--- OUTSIDE RECORDS SUMMARY | 2023-07-24 10:40 | XMS_ITS | Encounter Summary ---
Author Name Unknown Organization [facility] Address [address] [place] [address] Care Team Providers Care Eating Disorder Specialist Name Role Phone Unavailable Primary Care Provider [...] Disorder Sami Becerra Jr., D.ODaphne [address] [place] [address] [facility] Referral ID Status Reason Start Date Expiration Date Visits Requested Visits Authorized [id number] Authorized Specialty Services Required 04/16/2023 04/15/2024 1 1 H COVERER Reason for Visit * Appointment Request (Routine) - Closed Specialty Diagnoses / Procedures Referred By Reid winkler Referred To Contact Nephrology and Hypertension Referral ID Status Reason Start Date Expiration Date Visits Re quested Visits Authorized [id number] Closed 03/02/2023 03/01/2024 1 1 Encounter Details Date Type Department Care Team (Latest Contact Info) Description 04/16/2023 4:00 PM CLOTH COVERER External Outreach Division of Nephrology and Hypertension in [place], [place] [address] [place] [phone] Sami Becerra Jr., D.ODaphne [address] [place] [phone] Chronic Kidney Disease (CKD), Stage 3a Glomerular [...] Comments Blood Pressure 112/66 04/16/2023 4:01 PM CLOTH COVERER Pulse 76 04/16/2023 4:01 PM CLOTH COVERER Temperature - - Respiratory Rate - - Oxygen Saturation - - Inhaled Oxygen Concentration - - Weight 108 kg (237 lb 14 oz) 04/16/2023 4:01 PM CLOTH COVERER Height 170.1 cm (5' 6.97) 04/16/2023 4:01 PM CS T Body Mass Index 37.29 04/16/2023 4:01 PM CLOTH COVERER documented in this encounter Progress Notes * Sami Becerra Jr., D.O. - 04/16/2023 4:00 PM CST Referring Provider: No primary care provider on file. SUBJECTIVE REASON FOR VISIT [place] [facility] Follow-up regards allograft [...] his counselor from a practice in the [facility]. I note he has been [...] Time: 30 minutes Sami Becerra Jr., D.O. H COVERER documented in this encounter Plan of Treatment [...]
--- OUTSIDE RECORDS SUMMARY | 2023-07-24 10:40 | XMS_ITS ---
Author Name Unknown Organization [facility] Address [address] [place] [address] Care Team Providers Care Equal Opportunity Specialist Name Role Phone Unavailable Unavailable Unavailable Surgery Details Not on file Complications Check Surgery Details section. Procedure Estimated Blood Loss Check Surgery Details section. Procedure Findings Check Surgery Details section. Procedure Specimens Taken Check Surgery Details section.
--- OUTSIDE RECORDS SUMMARY | 2023-07-24 10:40 | XMS_ITS | Referral Summary ---
Author Name Unknown Organization [facility] Address [address] [place] [address] Care Team Providers Care Fnps Name Role Phone Unavailable Primary Care Provider Unavailabl e Source Comments Patient records contain information from all sites at [facility]. For routine questions regarding patient records, call [phone] during business hours, M-F 8:00 AM - 5:00 PM Central Time. Record requests for emergency care only can be directed to [phone] at any time.[facility] Allergies No known active allergies Medications Medication [...] Comments Blood Pressure 112/66 04/16/2023 4:01 PM PARACHUTE MARKER Pulse 76 04/16/2023 4:01 PM PARACHUTE MARKER Temperature - - Respiratory Rate - - Oxygen Saturation - - Inhaled Oxygen Concentration - - Weight 108 kg (237 lb 14 oz) 04/16/2023 4:01 PM PARACHUTE MARKER Height 170.1 cm (5' 6.97) 04/16/2023 4:01 PM CS T Body Mass Index 37.29 04/16/2023 4:01 PM PARACHUTE MARKER Plan of Treatment Not on file
--- OUTSIDE RECORDS SUMMARY | 2023-07-24 10:40 | XMS_ITS | Clinical Summary ---
Author Name Unknown Organization [facility] Address [address] [place] [address] Care Team Providers Care Die Maker Apprentice Name Role Phone Unavailable Primary Care Provider Unavailabl e Source Comments Patient records contain information from all sites at [facility]. For routine questions regarding patient records, call [phone] during business hours, M-F 8:00 AM - 5:00 PM Central Time. Record requests for emergency care only can be directed to [phone] at any time.[facility] Allergies No known active allergies Medications Medication [...] Comments Blood Pressure 112/66 04/16/2023 4:01 PM STONE SAWYER Pulse 76 04/16/2023 4:01 PM STONE SAWYER Temperature - - Respiratory Rate - - Oxygen Saturation - - Inhaled Oxygen Concentration - - Weight 108 kg (237 lb 14 oz) 04/16/2023 4:01 PM STONE SAWYER Height 170.1 cm (5' 6.97) 04/16/2023 4:01 PM CS T Body Mass Index 37.29 04/16/2023 4:01 PM STONE SAWYER Plan of Treatment Health Maintenance Due Date Last Done Comments Depression Monitoring (PHQ-9) 1982 HIV Screening 1982 Hepatitis C Screening 1982 Lipid (Cholesterol) Screening 1982 Zoster Vaccines (1 of 2) 2001 HPV Vaccines (3 - Risk 3-dos e SCDM series) 07/03/2019 03/03/2019, 03/16/2018 COVID-19 Vaccine (5 - 2022-2 4 season) 2022 04/09/2021, 11/06/2020, 07/17/2020, Additional [...]
--- OUTSIDE RECORDS SUMMARY | 2023-07-24 10:40 | XMS_ITS | Clinical Summary ---
Author Name Unknown [facility] Address [address] [place] [address] Care Team Providers Care Community Health Agent Name Role Phone Nhung Quijano APRN, PHARMACY PICKING TECHNICIAN Primary Care Provider + Source Comments You [...] for each transition of care or referral. [facility] Allergies Active Allergy Reactions Criticality Noted Date [...] transplant 08/05/2013 Overview: Goes to Kidney Specialist [place] [address]/ [place] Resolved Problems Problem Noted Date Diagnosed Date Resolved Date Chronic diarrhea 03/09/2015 10/21/2016 Overview: Neg workup. Possibly Cellcept? Heartburn 03/09/2015 03/16/2018 Overview: Planning EGD. If needing adjunct faculty for medical terminology antacid will discuss w/ ship worker FSGS (focal segmental glomerulosclerosis) 08/05/2013 08/05/2013 Asthma 04/18/2016 Overview: childhood Immunizations Name Administration Dates Next Due 9vHPV (Gardasil 9) 03/03/2019,03/16/2018 HepA-HepB (TWINRIX, 18+ yrs) 03/03/2019,03/16/20 18,10/20/2016 Influenza IIV4 (Quadrivalent ) 0.5mL (29680) 03/03/2019,03/16/2018 Influenza, Unspecified Formulation 12/27,01/28/2015,01/14/2011,2009,01/08/2009 PCV13 (Prevnar) [...] 88.9 kg (196 lb) 05/31/2020 10:11 AM DEPUTY BRAND INSPECTOR pt reports Height 170.2 cm (5' 7) 05/31/2020 10:11 AM DEPUTY BRAND INSPECTOR pt reports Body Mass Index 30.7 05/31/2020 10:11 AM DEPUTY BRAND INSPECTOR Plan of Treatment Health Maintenance Due Date [...] stage 3a chronic kidney disease, unspecified whether fci insulin use (HRC) ALBUMIN/CREAT RATIO Routine 02/16/2020 1 2:17 PM DEPUTY BRAND INSPECTOR Kidney replaced by transplant Chronic kidney disease (CKD), stage III (moderate) HGB A1C Routine 02/16/2020 12:07 PM DEPUTY BRAND INSPECTOR Kidney replaced by transplant Chronic kidney disease (CKD), stage III (moderate) LIPID PANEL & DIRECT LDL (IF NEEDED) Routine 04/03/2019 2:09 PM DEPUTY BRAND INSPECTOR Chronic kidney disease, stage III (moderate) (HRC) [...] Function Panel (09/03/2020 11:03 AM CDT) Pathologist [facility] Sodium 137 136 - 145 mmol/L 09/03/2020 4:42 PM CDT [facility] Potassium 4.6 3.5 - 5.1 mmol/L 09/03/2020 4:42 PM CDT [facility] Chloride 105 98 - 109 mmol/L 09/03/2020 4:42 PM CDT [facility] CO2 21 20 - 29 mmol/L 09/03/2020 4:42 PM CDT [facility] Anion Gap 11 7 - 16 mmol/L 09/03/2020 4:42 PM CDT [facility] Calcium 9.8 8.4 - 10.4 mg/dL 09/03/2020 4:42 PM CDT [facility] BUN 22 7 - 26 mg/dL 09/03/2020 4:42 PM CDT [facility] Creatinine 1.93(H) 0.73 - 1.18 mg/dL 09/03/2020 4:42 PM CDT [facility] GFR, Estimated 43(L) >60 mL/min/1.7 3m2 09/03/2020 4:42 PM CDT [facility] Albumin 4.1 3.5 - 5.0 g/dL 09/03/2020 4:42 PM CDT [facility] Phosphorus 3.1 2.3 - 4.7 mg/dL 09/03/2020 4:42 PM CDT [facility] Glucose 91 70 - 100 mg/dL 09/03/2020 4:42 PM CDT [facility] Comment:The given reference range is for the fasting state. Non-fasting reference range for glucose is 70 - 180 mg/dL. Hours Fasting 12 09/03/2020 4:42 PM CDT [facility] Blood Venipuncture / Unknown 09/03/2020 11:03 AM CDT 09/03/2020 11:03 AM CDT Bryson Lewis MD LAB_1 Performing Organization Address [facility] Co de Phone Number [facility] [address] [place], [place] [phone] [place] [address] LABORATORY [address] [place] [address] [place] [phone] * Microalb/Creat Ratio (02/16/2020 12:17 PM DEPUTY BRAND INSPECTOR) Albumin, Urine, Random 9.3 mg/L 02/16/2020 6:18 PM DEPUTY BRAND INSPECTOR [facility] Creatinine, Urine, Random 47 >20 mg/dL 02/16/2020 6:18 PM DEPUTY BRAND INSPECTOR [facility] Albumin/Creati nine Ratio, Urine, Random 20 <30 mg/g 02/16/2020 6:18 PM DEPUTY BRAND INSPECTOR [facility] Urine Non-blood Collection / Unknown 02/16/2020 12:17 PM DEPUTY BRAND INSPECTOR 02/16/2020 12:17 PM DEPUTY BRAND INSPECTOR Bryson Lewis MD LAB_1 Performing Organization Address [facility] Co de Phone Number [facility] [address] [place], [place] [phone] [place] [address] * Hgb A1C (02/16/2020 12:07 PM DEPUTY BRAND INSPECTOR) Hemoglobin A1C 5.1 <=5.6 % 02/17/2020 9:22 AM DEPUTY BRAND INSPECTOR [facility] Blood Venipuncture / Unknown 02/16/2020 12:07 PM DEPUTY BRAND INSPECTOR 02/16/2020 12:07 PM DEPUTY BRAND INSPECTOR Bryson Lewis MD LAB_1 Performing Organization Address [facility]/ZIP Co de Phone Number [facility] [address] [address] [place] [phone] * (ABNORMAL) Lipid Panel (reflex to Direct LDL if indicated) (04/03/2019 2:09 PM DEPUTY BRAND INSPECTOR) Cholesterol 197 0 - 199 mg/dL 04/03/2019 7:24 PM DEPUTY BRAND INSPECTOR [facility] Triglyceride 176(H) <=149 mg/dL 04/03/2019 7:24 PM DEPUTY BRAND INSPECTOR [facility] HDL Cholesterol 32(L) >=40 mg/dL 0 7:24 PM DEPUTY BRAND INSPECTOR [facility] LDL, Calculated 130(H) <130 mg/dL 0 7:24 PM DEPUTY BRAND INSPECTOR [facility] Non HDL Chol, Calculated 165 mg/dL 04/03/2019 7:24 PM DEPUTY BRAND INSPECTOR [facility] Cholesterol/HDL Ratio 6.2 04/03/2019 7:24 PM DEPUTY BRAND INSPECTOR [facility] Hours Fasting 12 04/03/2019 7:24 PM DEPUTY BRAND INSPECTOR [facility] Blood Venipuncture / Unknown 04/03/2019 2:09 PM DEPUTY BRAND INSPECTOR 04/03/2019 2:09 PM DEPUTY BRAND INSPECTOR Bryson Lewis MD LAB_1 Performing Organization Address City/[facility]/ZIP Co de Phone Number [facility] [address] [place] [address], [facility] [address] [place] [address], [facility] [phone] * HIV-1 p24 AND HIV-1/HIV-2 ANTIBODIES (10/20/2016 1:18 PM CDT) [facility] HIV-1 p24 Ag and HIV-1/HIV-2 Ab Nonreactive Nonreactive [facility] 10/20/2016 1:18 PM CDT 10/20/2016 2:56 PM CDT Narrative PN SOFT - 10/20/2016 3:44 PM CDT Performed at [facility], [address] [place] [address] CLIA number [id number] Nhung Quijano APRN, CNP LAB_1 Performing Organization Address [facility] Co de Phone Number [address] [address] * HEPATITIS PANEL ACUTE WITH REFLEX TO [...] - 10/26/2015 8:50 PM CDT Performed at [address] [address] CLIA number [id number] Nhung Quijano APRN, JENNIFER LAB_1 HP CONVERSION from Last 3 Months or Most Recently Relevant to Health Maintenance Advance Directives * Full Code (Latest Code Status on File) Date Activated Date Inactivated Comments 10/13/2015 9:08 AM 10/13/2015 12:36 PM Care Teams Community Health Agent Relationship Specialty Start Date End Date Nhung Quijano APRN, PHARMACY PICKING TECHNICIAN [address] [place] [address] PCP - General 08/05/13
--- OUTSIDE RECORDS SUMMARY | 2023-07-24 10:40 | XMS_ITS | Clinical Summary ---
Author Name Unknown Organization [facility] Address [place], [place] [address] Care Team Providers Care Warp Worker Name Role Phone Nhung Quijano NP Primary Care Provider [phone] Allergies Active Allergy Reactions Criticality Noted Date Comments Amoxicillin Anaphylaxis High 04/17/2019 Morphine (Pf) Agitation High 04/17/2019 Penicillins Anaphylaxis High 04/17/2019 Medications Medication Sig Dispensed Refills Start Date End Date Status mycophenolate (CELLCEPT) 500 mg tablet Take by mouth every 12 hours. Active tacrolimus (PROGRAF) 0.5 mg capsule Take 2.5 mg by mouth every 12 hours. Active valACYclovir (VALTREX) 1 gram tablet Take 1 g by mouth 2 times daily. Active acetaminophen (TYLENOL) 325 mg tablet Take 975 mg by mouth every 4 hours if needed. Max acetaminophen dose: 4000mg in 24 hrs. Active Social History Tobacco Use Types Packs/Day Years [...] Comments Blood Pressure 135/80 04/17/2019 9:51 PM DIRECTOR PATIENT ACCOUNTING Pulse 100 04/17/2019 9:51 PM DIRECTOR PATIENT ACCOUNTING Temperature 36.9 ??C (98.5 ??F) 04/17/2019 9:51 PM CS T Respiratory Rate 16 04/17/2019 9:51 PM DIRECTOR PATIENT ACCOUNTING Oxygen Saturation 96% 04/17/2019 9:51 PM DIRECTOR PATIENT ACCOUNTING Inhaled Oxygen Concentration - - Weight 93 kg (205 lb) 04/17/2019 9:51 PM DIRECTOR PATIENT ACCOUNTING Height 171.5 cm (5' 7.5) 04/17/2019 9:51 PM DIRECTOR PATIENT ACCOUNTING Body Mass Index 31.63 04/17/2019 9:51 PM DIRECTOR PATIENT ACCOUNTING Plan of Treatment Not on file Care Teams Warp Worker Relationship Specialty Start Date End Date Nhung Quijano, HOSPITAL CHIEF FINANCIAL OFFICER [address] [place] [address] PCP - General Family Practice 04/17/19
== END 2023-07-24 10:39 | disposition home or self-care (01) ==
LOC: NFLDREF 10:38
PROVIDERS: PCP Internal Medicine; Visit Provider Internal Medicine
DX: R53.83 Other fatigue (principal); Z13.29 Encounter for screening for other suspected endocrine disorder
CPT/HCPCS: 84403

== ENCOUNTER 2023-09-21 09:55 | Outpatient (CLI) | payer BC, SELFPAY ==
--- OUTSIDE RECORDS SUMMARY | 2023-09-24 15:40 | XMS_ITS | Clinical Summary ---
Author Organization [facility] Address [address] [place] [address] Care Team Providers Care Rig Operator Name Role Phone Nhung Quijano APRN, WEB MARKETING ANALYST Primary Care Provider + Source Comments You are receiving this document as you are listed as the primary care provider,follow-up provider, or the patient has been referred to you for consultation.This is in compliance with the Medicare and[facility] Hospital[facility] EHR Incentive Program,which states Providers who transition their patient to another setting of careor provider of care or refers their patient to another provider of care shouldprovide summary care record for each transition of care or referral. [employer] Allergies Active Allergy Reactions Criticality Noted Date [...] transplant 08/05/2013 Overview: Goes to Kidney Specialist [place] [address]/ [place] Resolved Problems Problem Noted Date Diagnosed Date Resolved Date Chronic diarrhea 03/09/2015 10/21/2016 Overview: Neg workup. Possibly Cellcept? Heartburn 03/09/2015 03/16/2018 Overview: Planning EGD. If needing group home antacid will discuss w/ juice mixer FSGS (focal segmental glomerulosclerosis) 08/05/2013 08/05/2013 Asthma 04/18/2016 Overview: childhood Immunizations Name Administration Dates Next Due 9vHPV (Gardasil 9) 03/03/2019,03/16/2018 HepA-HepB (TWINRIX, 18+ yrs) 03/03/2019,03/16/20 18,10/20/2016 Influenza IIV4 (Quadrivalent ) 0.5mL (06122) 03/03/2019,03/16/2018 Influenza, Unspecified Formulation 12/27,01/28/2015,01/14/2011,2009,01/08/2009 PCV13 (Prevnar) [...] 88.9 kg (196 lb) 05/31/2020 10:11 AM GRINDER HAND pt reports Height 170.2 cm (5' 7) 05/31/2020 10:11 AM GRINDER HAND pt reports Body Mass Index 30.7 05/31/2020 10:11 AM GRINDER HAND Plan of Treatment Health Maintenance Due Date Last Done Comments Diabetes: Eye Exam 1982 Diabetes: Foot Exam 1982 Zoster/Shingles (1 of 2) 2001 HPV Vaccine (3 - Risk 3-dose SCDM series) 07/03/2019 03/03/2019, 03/16/2018 Diabetes: Urine Microalbumin 02/15/2021 02/16/2020, 10/24/2019 Adult Preventive Visit 03/03/2021 03/03/2019 Diabetes: Creatinine 09/03/2021 09/03/2020, 02/16/2020, 10/24/2019, Additional history exists Diabetes: HGBA1C 10/05/2022 07/06/2022, 08/2020, 02/16/2020, Additional history exists COVID-19 Vaccine ( season) 2022 04/09/2021, 11/06/2020, 07/17/2020, Additional history exists Influenza (Season Ended) 2023 019, 03/16/2018, 12/28/2015, Additional history exists Diabetes: Lipid Panel [...] stage 3a chronic kidney disease, unspecified whether bed bug exterminator insulin use (HRC) ALBUMIN/CREAT RATIO Routine 02/16/2020 1 2:17 PM GRINDER HAND Kidney replaced by transplant Chronic kidney disease (CKD), stage III (moderate) HGB A1C Routine 02/16/2020 12:07 PM GRINDER HAND Kidney replaced by transplant Chronic kidney disease (CKD), stage III (moderate) LIPID PANEL & DIRECT LDL (IF NEEDED) Routine 04/03/2019 2:09 PM GRINDER HAND Chronic kidney disease, stage III (moderate) (HRC) [...] Function Panel (09/03/2020 11:03 AM CDT) Pathologist [facility] Sodium 137 136 - 145 mmol/L 09/03/2020 4:42 PM CDT [facility] Potassium 4.6 3.5 - 5.1 mmol/L 09/03/2020 4:42 PM CDT [facility] Chloride 105 98 - 109 mmol/L 09/03/2020 4:42 PM CDT [facility] CO2 21 20 - 29 mmol/L 09/03/2020 4:42 PM CDT [facility] Anion Gap 11 7 - 16 mmol/L 09/03/2020 4:42 PM CDT [facility] Calcium 9.8 8.4 - 10.4 mg/dL 09/03/2020 4:42 PM CDT [facility] BUN 22 7 - 26 mg/dL 09/03/2020 4:42 PM CDT [facility] Creatinine 1.93(H) 0.73 - 1.18 mg/dL 09/03/2020 4:42 PM CDT [facility] GFR, Estimated 43(L) >60 mL/min/1.7 3m2 09/03/2020 4:42 PM CDT [facility] Albumin 4.1 3.5 - 5.0 g/dL 09/03/2020 4:42 PM CDT [facility] Phosphorus 3.1 2.3 - 4.7 mg/dL 09/03/2020 4:42 PM CDT [facility] Glucose 91 70 - 100 mg/dL 09/03/2020 4:42 PM CDT [facility] Comment:The given reference range is for the fasting state. Non-fasting reference range for glucose is 70 - 180 mg/dL. Hours Fasting 12 09/03/2020 4:42 PM CDT [facility] Blood Venipuncture / Unknown 09/03/2020 11:03 AM CDT 09/03/2020 11:03 AM CDT Bryson Lewis MD LAB_1 Performing Organization Address [facility] Co de Phone Number [facility] [address] [place], [place] [phone] [place] [address] LABORATORY [address] [place] [address] [phone] * Microalb/Creat Ratio (02/16/2020 12:17 PM GRINDER HAND) Albumin, Urine, Random 9.3 mg/L 02/16/2020 6:18 PM GRINDER HAND [facility] Creatinine, Urine, Random 47 >20 mg/dL 02/16/2020 6:18 PM GRINDER HAND [facility] Albumin/Creati nine Ratio, Urine, Random 20 <30 mg/g 02/16/2020 6:18 PM GRINDER HAND [facility] Urine Non-blood Collection / Unknown 02/16/2020 12:17 PM GRINDER HAND 02/16/2020 12:17 PM GRINDER HAND Bryson Lewis MD LAB_1 Performing Organization Address [facility] Co de Phone Number [facility] [address] [place], [place] [phone] [place] [address] * Hgb A1C (02/16/2020 12:07 PM GRINDER HAND) Hemoglobin A1C 5.1 <=5.6 % 02/17/2020 9:22 AM GRINDER HAND [facility] Blood Venipuncture / Unknown 02/16/2020 12:07 PM GRINDER HAND 02/16/2020 12:07 PM GRINDER HAND Bryson Lewis MD LAB_1 Performing Organization Address [facility]/ZIP Co de Phone Number [facility] [phone] [place] [address] * (ABNORMAL) Lipid Panel (reflex to Direct LDL if indicated) (04/03/2019 2:09 PM GRINDER HAND) Cholesterol 197 0 - 199 mg/dL 04/03/2019 7:24 PM GRINDER HAND [facility] Triglyceride 176(H) <=149 mg/dL 04/03/2019 7:24 PM GRINDER HAND [facility] HDL Cholesterol 32(L) >=40 mg/dL 0 7:24 PM GRINDER HAND [facility] LDL, Calculated 130(H) <130 mg/dL 0 7:24 PM GRINDER HAND [facility] Non HDL Chol, Calculated 165 mg/dL 04/03/2019 7:24 PM GRINDER HAND [facility] Cholesterol/HDL Ratio 6.2 04/03/2019 7:24 PM GRINDER HAND [facility] Hours Fasting 12 04/03/2019 7:24 PM GRINDER HAND [facility] Blood Venipuncture / Unknown 04/03/2019 2:09 PM GRINDER HAND 04/03/2019 2:09 PM GRINDER HAND Bryson Lewis MD LAB_1 Performing Organization Address [facility]/ZIP Co de Phone Number [facility] [address] [place] [address], [facility] [address] [place] [address], [facility] [phone] * HIV-1 p24 AND HIV-1/HIV-2 ANTIBODIES (10/20/2016 1:18 PM CDT) [facility] HIV-1 p24 Ag and HIV-1/HIV-2 Ab Nonreactive Nonreactive SOFT 10/20/2016 1:18 PM CDT 10/20/2016 2:56 PM CDT Narrative PN SOFT - 10/20/2016 3:44 PM CDT Performed at [facility], [address] [place] [address] CLIA number [id number] Nhung Quijano APRN, CNP LAB_1 Performing Organization Address [facility] Co de Phone Number SOFT [address] [place] [address] * HEPATITIS PANEL ACUTE WITH REFLEX TO [...] - 10/26/2015 8:50 PM CDT Performed at [address] [address] CLIA number [id number] Nhung Quijano APRN, CNP LAB_1 HP CONVERSION from Last 3 Months or Most Recently Relevant to Health Maintenance Advance Directives * Full Code (Latest Code Status on File) Date Activated Date Inactivated Comments 10/13/2015 9:08 AM 10/13/2015 12:36 PM Care Teams Rig Operator Relationship Specialty Start Date End Date Nhung Quijano APRN, WEB MARKETING ANALYST [address] [place] [address] PCP - General 08/05/13
--- OUTSIDE RECORDS SUMMARY | 2023-09-24 15:40 | XMS_ITS | Encounter Summary ---
Author Organization [facility] Address [address] [place] [address] Care Team Providers Care Pigment Presser Name Role Phone Unavailable Primary Care Provider Unavailabl e Encounter Details Date Type Department Care Team (Late st Contact Info) Description 08/31/2023 Orders Only Division of Nephrology and Hypertension in [place], [place] [address] [place] [address] Sami Becerra Jr., D.O. [address] [place] [address] Social History Tobacco Use Types Packs/Day Years [...] on file documented as of this encounter Plan of Treatment Not on file documented as of this encounter Visit Diagnoses Not on filedocumented in this encounter
--- OUTSIDE RECORDS SUMMARY | 2023-09-24 15:40 | XMS_ITS | Clinical Summary ---
Author Organization [facility] Address [address] [place] [address] Care Team Providers Care Special Investigator Name Role Phone Unavailable Primary Care Provider Unavailabl e Source Comments Patient records contain information from all sites at [facility]. For routine questions regarding patient records, call [phone] during business hours, M-F 8:00 AM - 5:00 PM Central Time. Record requests for emergency care only can be directed to [phone] at any time.[facility] Allergies No known active allergies Medications Medication Sig Dispensed Refills Start Date End Date Status mycophenolate (CELLCEPT) 500 mg tablet Take 1 tablet (500 mg total) by mouth 2 (two) times a day. 180 tablet 3 02/19/2023 4 Active valACYclovir (VALTREX) 500 mg tablet Take 1 tablet (500 mg total) by mouth daily. Transplant prophylaxis 90 tablet 3 02/19/2023 4 Active tacrolimus (PROGRAF) 1 mg capsule Take 2 capsules (2 mg total) by mouth 2 (two) times a day. Total 2.5 mg BID 360 capsule 3 08/31/2023 5 Active tacrolimus (PROGRAF) 0.5 mg capsule Take 1 capsule (0.5 mg total) by mouth 2 (two) times a day. Total 2.5 mg BID 180 capsule 3 08/31/2023 5 Active tacrolimus (PROGRAF) 0.5 mg capsule Take 1 capsule (0.5 mg total) by mouth 2 (two) times a day. Total 2.5 mg BID 180 capsule 3 02/19/2023 4 Discontinue d(Reorder) tacrolimus (PROGRAF) 1 mg capsule Take 2 capsules (2 mg total) by mouth 2 (two) times a day. Total 2.5 mg BID 360 capsule 3 02/19/2023 4 Discontinue d(Reorder) Active Problems Problem Noted Date Diagnosed Date Depressive Disorder 04/16/2023 Chronic Kidney Disease (CKD) , Stage 3a Glomerular Filtration Rate (GFR) 45 To 59 02/19/2023 Transplant Renal 02/19/2023 Immune Disorder 02/19/2023 Glomerulosclerosis Focal Segmental 02/19/2023 Dyspnea On Exertion 02/19/2023 Encounters Date Type Department Care Team Description 08/31/2023 Orders Only Division of Nephrology and Hypertension in [place], [place] [address] [place] [address] Sami Becerra Jr. D.O. 08/31/2023 Clinical Communication Division of Nephrology and Hypertension in [place], [place] [address] [place] [address] Sami Becerra Jr., D.O. Med Question (Priority 2) from Last 3 Months Social History Tobacco [...] Comments Blood Pressure 112/66 04/16/2023 4:01 PM MANNEQUIN DECORATOR Pulse 76 04/16/2023 4:01 PM MANNEQUIN DECORATOR Temperature - - Respiratory Rate - - Oxygen Saturation - - Inhaled Oxygen Concentration - - Weight 108 kg (237 lb 14 oz) 04/16/2023 4:01 PM MANNEQUIN DECORATOR Height 170.1 cm (5' 6.97) 04/16/2023 4:01 PM CS T Body Mass Index 37.29 04/16/2023 4:01 PM MANNEQUIN DECORATOR Plan of Treatment Health Maintenance Due Date Last Done Comments Depression Monitoring (PHQ-9) 1982 HIV Screening 1982 Hepatitis C Screening 1982 Lipid (Cholesterol) Screening 1982 Zoster Vaccines (1 of 2) 2001 HPV Vaccines (3 - Risk 3-dos e SCDM series) 07/03/2019 03/03/2019, 03/16/2018 COVID-19 Vaccine (5 - 2023-2 4 season) 2022 04/09/2021, 11/06/2020, 07/17/2020, Additional [...]
--- OUTSIDE RECORDS SUMMARY | 2023-09-24 15:40 | XMS_ITS | Referral Summary ---
Author Organization [facility] Address [address] [place] [address] Care Team Providers Care Finance Associate Name Role Phone Unavailable Primary Care Provider Unavailabl e Source Comments Patient records contain information from all sites at [facility]. For routine questions regarding patient records, call [phone] during business hours, M-F 8:00 AM - 5:00 PM Central Time. Record requests for emergency care only can be directed to [phone] at any time.[facility] Encounters Date Type Department Care Team Description 08/31/2023 Orders Only Division of Nephrology and Hypertension in [place], [place] [address] [place] [address] Sami Becerra Jr. D.O. 08/31/2023 Clinical Communication Division of Nephrology and Hypertension in [place], [place] [address] [place] [address] Sami Becerra Jr. D.O. Med Question (Priority 2) from Last 3 Months Allergies No known [...] Comments Blood Pressure 112/66 04/16/2023 4:01 PM RECYCLING DIRECTOR Pulse 76 04/16/2023 4:01 PM RECYCLING DIRECTOR Temperature - - Respiratory Rate - - Oxygen Saturation - - Inhaled Oxygen Concentration - - Weight 108 kg (237 lb 14 oz) 04/16/2023 4:01 PM RECYCLING DIRECTOR Height 170.1 cm (5' 6.97) 04/16/2023 4:01 PM CS T Body Mass Index 37.29 04/16/2023 4:01 PM RECYCLING DIRECTOR Plan of Treatment Not on file
--- OUTSIDE RECORDS SUMMARY | 2023-09-24 15:40 | XMS_ITS ---
Author Organization [facility] Address [address] [place] [address] Care Team Providers Care Mental Health Specialist Name Role Phone Unavailable Unavailable Unavailable Surgery Details Not on file Complications Check Surgery Details section. Procedure Estimated Blood Loss Check Surgery Details section. Procedure Findings Check Surgery Details section. Procedure Specimens Taken Check Surgery Details section.
--- OUTSIDE RECORDS SUMMARY | 2023-09-24 15:40 | XMS_ITS | Clinical Summary ---
Author Organization [facility] Address [place], [place] [address] Care Team Providers Care Printed Circuit Board Panels Plater Name Role Phone Nhung Quijano NP Primary Care Provider [phone] Allergies Active Allergy Reactions Criticality Noted Date [...] Comments Blood Pressure 135/80 04/17/2019 9:51 PM CLIENT ADMINISTRATOR Pulse 100 04/17/2019 9:51 PM CLIENT ADMINISTRATOR Temperature 36.9 ??C (98.5 ??F) 04/17/2019 9:51 PM CS T Respiratory Rate 16 04/17/2019 9:51 PM CLIENT ADMINISTRATOR Oxygen Saturation 96% 04/17/2019 9:51 PM CLIENT ADMINISTRATOR Inhaled Oxygen Concentration - - Weight 93 kg (205 lb) 04/17/2019 9:51 PM CLIENT ADMINISTRATOR Height 171.5 cm (5' 7.5) 04/17/2019 9:51 PM CLIENT ADMINISTRATOR Body Mass Index 31.63 04/17/2019 9:51 PM CLIENT ADMINISTRATOR Plan of Treatment Not on file Care Teams Printed Circuit Board Panels Plater Relationship Specialty Start Date End Date Nhung Quijano, SKILLED NURSING FACILITIES PROFESSIONAL [address] [facility] [address] PCP - General Family Practice 04/17/19
--- OUTSIDE RECORDS SUMMARY | 2023-09-24 15:40 | XMS_ITS | Encounter Summary ---
Author Organization [facility] Address [address] [place] [address] Care Team Providers Care Diplomatic Interpreter/Translator Name Role Phone Unavailable Primary Care Provider Unavailabl e Reason for Visit * Reason Onset Date Comments Med Question 08/31/2023 Priority 2 Encounter Details Date Type Department Care Team (Latest Contact Info) Description 08/31/2023 Clinical Communication Division of Nephrology and Hypertension in [place], [place] [address] [place] [address] Sami Becerra Jr., D.O. [address] [place] [address] Med Question (Priority 2) Social History Tobacco Use Types Packs/Day Years [...] on file documented as of this encounter Miscellaneous Notes * Telephone Encounter - Barney Mcdonald R.N. - 09/14/2023 2:20 PM CDT SUBJECTIVE CHIEF COMPLAINT / REASON FOR CALL Med Question (Priority 2) Information Discussed I contacted the patient's pharmacy and talked with the pharmacist Giovanna. The patient has tacrolimus1 mg dosage manufactured product was changed to [employer] [facility] #[id number]. The previous manufacture was Dr. Carty's [facility] [id number]. The patient was aware of this change. PLAN Disposition/Recommendation: self-care is appropriate at this time, patient encouraged to call back with questions Information/Education: patient/caller able to teach back Caller agreeable to plan of care: yes The following references were used: nursing clinical judgement documented in this encounter Plan of Treatment Not on file documented as of this encounter Visit Diagnoses Not on filedocumented in this encounter
== END 2023-09-21 09:56 | disposition home or self-care (01) ==
LOC: NFLDREF 09-24 15:37
PROVIDERS: PCP Internal Medicine; Referring Provider Internal Medicine; Visit Provider Internal Medicine Nephrology
DX: Z00.00 Encounter for general adult medical examination without abnormal findings (principal); N18.5 Chronic kidney disease, stage 5; R53.83 Other fatigue; F41.9 Anxiety disorder, unspecified; Z94.0 Kidney transplant status
CPT/HCPCS: 80061; 80069; 80197; 82043; 82570; 84450; 84460; 84550

== ENCOUNTER 2024-04-21 10:20 | Outpatient (CLI) | payer BC, SELFPAY | END 2024-04-21 10:21 | disposition home or self-care (01) | LOC: NFLDREF 04-23 02:20 | PROVIDERS: PCP Internal Medicine; Referring Provider Internal Medicine; Visit Provider Internal Medicine Nephrology | DX: Z94.0 Kidney transplant status (principal) | CPT/HCPCS: 80061; 80069; 80197; 82043; 82570; 87086 ==

== ENCOUNTER 2024-11-04 09:14 | Outpatient (CLI) | payer BC, SELFPAY | END 2024-11-04 09:15 | disposition home or self-care (01) | LOC: NFLDREF 11-06 11:19 | PROVIDERS: PCP Internal Medicine; Referring Provider Internal Medicine; Visit Provider Internal Medicine Nephrology | DX: N18.5 Chronic kidney disease, stage 5 (principal); Z94.0 Kidney transplant status; R53.83 Other fatigue; E66.9 Obesity, unspecified | CPT/HCPCS: 80061; 80069; 80197; 82043; 82570; 83970; 84550; 86140 ==